=== PATIENT | male | born 1980 ===

== ENCOUNTER 2016-09-15 11:30 | Inpatient (IN) | payer OTHER ==
[~2016-09-15] VITALS: Ht 177.8 cm; Wt 104.3 kg
[2016-09-21] VITALS (12 sets, daily range): BP systolic 107–132; BP diastolic 64–82
[2016-09-21] MEDS ORDERED: ceFAZolin sod 2 GM in D5W 110 ML IVPB ONE (07:00)
[2016-09-21] MEDS ORDERED: NKM (11:03)
[2016-09-21] MEDS ORDERED: Thrombin 5000 units TOPIC ONE (11:45)
[2016-09-21] MEDS ORDERED: Vancomycin 1gm inj IVPB ONE (11:45)
[2016-09-21] MEDS ORDERED: Bacitracin 50000 Units Vial ONE (11:46)
[2016-09-21] MEDS ORDERED: Bupivacaine w/Epi 0.5% 30ml Vial INJ ONE (11:46)
[2016-09-21] MEDS ORDERED: Gelfoam Absorbable 1gm powder pkt TOPIC ONE (11:46)
[2016-09-21] MEDS ORDERED: Thrombin 5000 units spray kit TOPIC ONE (11:46)
--- NOTE | 2016-09-21 12:25 | Pre-Procedure Note/Attestation ---
Pre-Procedure Note/Attestation Complete Prior to Procedure Procedure Narrative: ACDF c56 Indications for Procedure Pre-Operative Diagnosis: Discopathy/stenosis C56 Attestation I attest that I discussed the nature of the procedure; its benefits; risks and complications; and alternatives (and the risks and benefits of such alternatives ), prior to the procedure, with the patient (or the patient's legal senior patient account representative). I attest that, if there was a reasonable possibility of needing a blood transfusion, the patient (or the patient's legal senior patient account representative) was given the [facility] standardized written summary, pursuant to the Dereje [place] Blood Safety Act ([place] Health and Safety Code # 1645, as amended). I attest that I re-evaluated the patient just prior to the surgery and that there has been no change in the patient's H&P, except as documented below: AMALIA ZUÑIGA Sep 21, 2016 12:25
[2016-09-21] MEDS ORDERED: LR 1000ml ONE (12:30)
[2016-09-21] MEDS ORDERED: fentaNYL 100 mcg/2 mL IV ONE (12:30)
[2016-09-21] MEDS ORDERED: Midazolam 2mg/2ml Inj ONE (12:30)
[2016-09-21] MEDS ORDERED: NS Irrig 1000ml ONE (12:30)
[2016-09-21] MEDS ORDERED: Propofol 10mg/ml 100ml btl IV ONE (12:30)
[2016-09-21] MEDS ORDERED: Zemuron 50mg/5ml Inj IV ONE (12:30)
[2016-09-21] MEDS ORDERED: Sterile Water Irrig 1000ml IRRIG ONE (12:30)
[2016-09-21] MEDS ORDERED: Esmolol 100mg/10ml Inj ONE (12:30)
[2016-09-21] MEDS ORDERED: LR 1000ml 1,000 ML IVLG SCH (13:35)
--- NOTE | 2016-09-21 13:41 | Anethesia Preoperative Eval ---
Anesthesia Pre-op PMH/ROS General Date of Evaluation: Sep 21, 2016 Time of Evaluation: 12:20 Anesthesiologist: Gian ASA Score: ASA 1 Mallampati Score Class I : Soft palate, uvula, fauces, pillars visible Class II: Soft palate, uvula, fauces visible Class III: Soft palate, base of uvula visible Class IV: Only hard plate visible Mallampati Classification: Class II Surgeon: Davis Diagnosis: Facet dependent pain Surgical Procedure: ACDF Allergies: Coded Allergies: No Known Allergies (Unverified , 09/18/16) Past Medical History Cardiovascular: Denies: CAD, HTN, [place], arrhythmia, other, valve dz Pulmonary: Denies: COPD, TELLO, asthma, other Gastrointestinal/Genitourinary: Denies: CRI, ESRD, GERD, other Neurologic/Psychiatric: Denies: CVA, TIA, dementia, depression/anxiety, other Endocrine: Denies: DM, hypothyroidism, other, steroids HEENT: Denies: WRANGE[place] (L), [place] (R), cataract (L), cataract (R), glaucoma, other Hematology/Immune: Denies: DVT, anemia, bleeding disorder, other Musculoskeletal/Integumentary: Denies: DDD, DJD, OA, RA, edema, other PMH Narrative: Denies significant PMH PSxH Narrative: AP, knee scope Anesthesia Pre-op Phys. Exam Physician Exam Last Vital Signs Date Time Temp Pulse Resp B/P Pulse Ox O2 Delivery O2 Flow Rate FiO2 09/21/16 11:18 97.9 85 20 126/73 99 Room Air Constitutional: NAD Neurologic: CN 2-12 intact Cardiovascular: RRR, no M/R/G Respiratory: CTA Gastrointestinal: S/NT/ND Airway Exam Mallampati Score: Class II MO: full ROM: full Teeth: intact Anesthesia Pre-op A/P Labs WNL Studies Pre-op Studies: EKG - NSR Risk Assessment & Plan Assessment: Healthy male for ACDF Plan: GETA, [place] Scope intubation Status Change Before Surgery: No Pre-Antibiotics Drug: Ancef Given Within 1 Hr of Incision: Yes Time Given: 12:45 WEI DEMPSEY M.D. Sep 21, 2016 13:41
[2016-09-21] MEDS ORDERED: Labetalol 5mg/ml 20ml vial IV PRN (13:45)
[2016-09-21] MEDS ORDERED: Meperidine 25mg/ml Inj IV PRN (13:45)
[2016-09-21] MEDS ORDERED: LORazepam Inj 2mg/ml 1ml IV PRN (13:45)
--- NOTE | 2016-09-21 13:46 | Immediate Post-Op Evaluation ---
Immediate Post-Op Evalulation Immediate Post-Op Evalulation Procedure: ACDF C5-6 Date of Evaluation: Sep 21, 2016 Time of Evaluation: 15:10 IV Fluids: 1350 Estimated Blood Loss: 50 Blood Pressure Systolic: 107 Blood Pressure Diastolic: 64 Pulse Rate: 97 Respiratory Rate: 13 O2 Sat by Pulse Oximetry: 98 Temperature (Fahrenheit): 97.6 Pain Score (1-10): 0 Nausea: No Vomiting: No Complications No complication Patient Status: reacts, patent, extubated, none Hydration Status: adequate Drug: Ancef Given Within 1 Hr of Incision: Yes Time Given: 12:45 WEI DEMPSEY M.D. Sep 21, 2016 13:46
--- NOTE | 2016-09-21 14:34 | Brief Operative Note ---
Immediate Post Operative Note Operative Note Pre-op Diagnosis: Discopathy/stenosis C56 Procedure: acdf c56 Post-op Diagnosis: same as pre-op Findings: consistent w/pre-op dx studies Surgeon: pastor Reinforcing Rod Layer: armando GUAN Anesthesiologist: agapito Anesthesia: general Specimen: none Complications: none Condition: stable Estimated Blood Loss: none Drains: none Implant(s) used?: Yes - alphatec cage and plate AMALIA ZUÑIGA Sep 21, 2016 14:34
[2016-09-21] MEDS ORDERED: Norco 7.5mg/325mg tab ORAL PRN ×2 (14:45)
[2016-09-21] MEDS ORDERED: traMADol 50mg tab ORAL PRN (14:45)
[2016-09-21] MEDS ORDERED: Norco 5mg/325mg tab ORAL PRN (14:45)
[2016-09-21] MEDS ORDERED: Milk of Magnesia 30ml Ud ORAL PRN (14:45)
[2016-09-21] MEDS ORDERED: Metoclopramide 10mg/2ml Inj IVP PRN ×2 (14:45→17:08)
[2016-09-21] MEDS ORDERED: HYDROmorphone 1mg/ml Carpuject SUBQ PRN (14:45)
[2016-09-21] MEDS ORDERED: Naloxone 0.4mg/ml Inj IVP PRN (14:45)
--- NOTE | 2016-09-21 15:04 | 48 Hour Post Anesthesia Eval ---
Post Anesthesia Evaluation Procedure: ACDF C5-6 Date of Evaluation: Sep 21, 2016 Time of Evaluation: 09:20 Blood Pressure Systolic: 113 0: 70 Pulse Rate: 96 Respiratory Rate: 14 O2 Sat by Pulse Oximetry: 98 Airway: patent Nausea: No Vomiting: No Pain Intensity: 5 If pain is > 6 Comment: Patient asking for pain meds appropriately Hydration Status: adequate Cardiopulmonary Status: Stable Mental Status/LOC: patient returned to baseline Follow-up Care/Observations: As per surgery Post-Anesthesia Complications: No anesthetic complication Follow-up care needed: N/A WEI DEMPSEY M.D. Sep 21, 2016 15:04
[2016-09-21] MEDS: Hydromorphone 0.5mg/0.5ml inj IVP PRN ×2 (15:29→15:54)
--- NOTE | 2016-09-21 16:59 | Diagnostic Imaging Report ---
Indication: PAIN, left upper extremity greater than right upper extremity, intraoperative Technique: Digital intraoperative images Comparison: None Findings: Intraoperative images document a surgical tool anterior to the C5-6 disc. Subsequent images document placement of anterior fusion hardware and a disc spacer at C5-6. Impression: Intraoperative imaging, as described
[2016-09-21] MEDS ORDERED: LR 1000ml 1,000 ML IV SCH (17:30)
[2016-09-21] MEDS ORDERED: D5 1/2NS 1,000 ML IV SCH (17:30)
[2016-09-21] MEDS: Docusate 100mg cap ORAL SCH (18:00)
[2016-09-21] MEDS: HYDROmorphone 1mg/ml Carpuject SUBQ PRN (20:57)
[2016-09-21] MEDS: Chloraseptic Spray 20mL Bottle ORAL PRN (20:59)
[2016-09-21] MEDS: ceFAZolin sod 1 GM in D5W 55 ML IV SCH ×2 (20:59→21:30)
--- NOTE | 2016-09-21 22:28 | Operative Note - Dictated ---
DATE OF OPERATION: 09/21/2016 SURGEON: David Cannon M.D. CHAIN MAKER HAND: Allan Ingram PA-C. ANESTHESIA: General endotracheal anesthesia. ANESTHESIOLOGIST: Dereje Springer M.D. PREOPERATIVE DIAGNOSIS: C5-C6 discopathy with both upper extremity radiculopathy left worse than right. POSTOPERATIVE DIAGNOSIS: C5-C6 discopathy with both upper extremity radiculopathy left worse than right. PROCEDURE: 1. Anterior cervical diskectomy and fusion. 2. Subtotal uncal vertebrectomy left side C5-C6. 3. Interbody fusion using peek structural cage. 4. Anterior plate (Alphatec). 5. Use of local autograft bone as well as allograft bone (structural) (bacterin bone). 6. Use of operative microscope. 7. Use of fluoroscopy. 8. Neurodiagnostic monitoring. ESTIMATED BLOOD LOSS: Minimal. COMPLICATIONS: None. FINDINGS: Marked stenosis left side C5-C6 . INDICATIONS: The patient is a very pleasant gentleman sustained an injury to his neck resulting in neck pain with radiation both upper extremities, but primarily left-sided. Conservative care had failed. Surgical intervention was recommended and he elected to proceed with surgery based on the abnormal findings of the C5-C6 level. The patient elected to proceed with surgery. RISK NOTE: The patient was explained in detail risks and benefits of surgery to include, but not be limited to, those of bleeding, infection, damage to nerves, vessels, tendons, anesthetic risk, allergic reaction, aspiration, possibly , possible risk of pseudoarthrosis, and need for additional surgery were discussed. OPERATIVE PROCEDURE IN DETAIL: The patient was taken to the operative suite after positive identification was made. General endotracheal anesthesia was induced. Post intubation, the patient was then placed supine on to a radiolucent operating table. The neck was prepped and draped in usual sterile fashion. Under fluoroscopic guidance, C3-C4 level was identified. The neck was prepped and draped in usual sterile fashion. The skin was infiltrated with Marcaine with epinephrine. The incision was made transversly at C5. The incision was sharply dissected down to the area of the platysma. The platysma was transected perpendicular to the fibers. Interval medial to sternocleidomastoid was identified and blunt dissection was carried out to the prevertebral fascia. A self-retaining retractors were put in place. The needle was placed first at C4-C5 corrected at the C5-C6 level. Once the C5-C6 level was identified, the disk was incised and a [place] posts were placed into C5 and C6. Operative microscope was brought in place. High-speed drill, curved curette, straight curette pituitaries and Kerrison punches were then used to perform a thorough diskectomy all the way down to the posterior osteophytes. The posterior longitudinal ligament was removed in a piecemeal fashion using Microsect curved curette, and Kerrison punch. The dissection was carried out all the way into the neural foramen on the right. The left side was very stenotic due to uncovertebral overgrowth. Uncal vertebrectomy on the left side was performed decompressing the nerve root. Care was taken to avoid injury to the vertebral arteries. Copious irrigation was performed. Once meticulous hemostasis was achieved and decompression was achieved, decision was made to place the appropriate size interbody device. This was a 6 mm medium peek cage. Prior to the interbody placement, endplate preparation was performed using a high-speed drill. At this point, it should be noted that the excess bone from the uncal vertebrectomy as well as osteophyte resection was morselized for reimplantation later. A small block of Bacterin bone was soaked in blood and inserted into a 6 mm medium peek cage, which was then inserted into the the disk space. Fluoroscopically location was confirmed. The appropriate size plate was then chosen and all four screw holes were serially drilled and 14 mm self-drilling self-tapping screws were applied with excellent bony fixation. Copious irrigation was performed. Fluoroscopic images confirmed good anatomic alignment and hardware placement. An additional piece of Bacterin bone and autograft bone was then placed along the lateral aspect of the cage. Meticulous hemostasis was achieved. The platysma was repaired using 3-0 Vicryl. Subcutaneous closure using 4-0 Vicryl and then Dermabond was applied. Sterile Tegaderm dressing was then applied. At the time of this dictation, the patient was awaiting extubation. David Cannon M.D. DR: Andrae JOB#: [id number] CC: ALIX
[2016-09-22] VITALS: BP 128/77
[2016-09-22] MEDS: Norco 10mg/325mg tab ORAL PRN ×2 (00:12→15:56)
--- NOTE | 2016-09-22 01:38 | Consultation ---
DATE OF CONSULTATION: 09/21/2016 REASON FOR CONSULTATION: Acute pain consult. CONSULTING PHYSICIAN: Jitendra Smith M.D. REFERRING PHYSICIAN: David Cannon M.D. Dear Dr. David Cannon, Thank you kindly for consulting me to evaluate and render an opinion as to how to proceed in the management of acute postoperative cervical spine pain after cervical spine fusion surgery with instrumentation. 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 Since that time, the patient has had significant neck pain and has been unable to play the guitar with neuropathic and upper extremity radicular symptoms. After today's cervical spine fusion surgery with instrumentation, the patient complained of significant discomfort. He consulted me for acute pain consultation. I saw the patient at bedside with his tasha Arevalo. I discussed the case with the hospital pharmacist, the nurse RN Sharmaine, and yourself, Dr. Cannon, to help improve this patient's pain complaints and help expedite his hospital discharge. PAST MEDICAL HISTORY: 1. Acute postoperative cervical spine pain, status post cervical spine fusion surgery with instrumentation by Dr. David Cannon in September 2016. 2. Slip and fall accident. 3. Obesity. 4. Active tobacco usage. MEDICATIONS AT HOME: NSAIDs and p.r.n. hydrocodone. PAST SURGICAL HISTORY: 1. Left knee surgery. 2. Appendectomy. 3. Bilateral ear surgery, in the distant past. FAMILY HISTORY: 1. Hypertension. 2. Kidney stones. 3. Coronary artery disease. 4. Malignancy. SOCIAL HISTORY: The patient is accompanied at bedside by his tasha Arevalo. He drinks alcohol rarely. He denies marijuana usage. After his accident he started smoking tobacco again, about a half pack per day. I did drapery counselor the patient to stop smoking. REVIEW OF SYSTEMS: Per attending physician. ALLERGIES: No known drug allergies. PHYSICAL EXAMINATION: GENERAL: Age 36. Height 5 feet 9 inches. Weight 245 pounds. Body mass index 36. VITAL SIGNS: Afebrile, pulse 97, respirations 18, blood pressure 131/76, and oxygen saturation 100% on nasal cannula. HEENT: [place] collar in place. Dressing appears clean and dry. Significant pain with range of motion. The patient is swallowing, phonating, and breathing within normal limits. Extraocular muscles intact. Pupils are equal, round, and reactive to light and accommodative. No Johnson palsy. No Carli syndrome. EXTREMITIES: Moving all extremities x4. Bilateral upper extremity weakness, which has improved since surgery. Dr. Cannon, surgery, is aware. NEUROLOGIC: Detailed neurologic exam is per Dr. Cannon. CHEST: Mildly barrel chested. No wheezes, rales, rhonchi, or accessory muscle use noted. HEART: Regular rate and rhythm. ABDOMEN: Positive obesity. Positive bowel sounds. Soft and nontender. No rebound. No guarding. GENITOURINARY: Deferred. DIAGNOSTIC TESTING: Laboratory studies from 09/11/2016 showed sodium 137, potassium 3.7, bicarbonate of 28, chloride 105, BUN 15, creatinine 0.8, calcium 9.5, and phosphorus 2.9. Total protein 6.9 and albumin 4.5. Total bilirubin 0.3, alkaline phosphatase 55, ALT 59, and AST 22. White count 8, hematocrit 44, and platelets 310,000. INR of 0.8 and PTT 31. A 12-lead EKG shows normal sinus rhythm, ventricular rate 86, no evidence for acute cardiac ischemia. IMPRESSION: 1. Acute postoperative cervical spine pain, status post cervical spine fusion surgery with instrumentation by Dr. David Cannon in September 2016. 2. Slip and fall accident. 3. Obesity. 4. Active tobacco usage. TREATMENT AND RECOMMENDATIONS: To help with this patient's pain control, I devised the following analgesic plan. Topical agents will be helpful for this patient. In this regard, he had been obtaining popsicles from the hospital dietary department and I have asked for continued supply. I have asked the pharmacy to provide a bottle of Chloraseptic [place] for possible sore throat complaints, and the patient will advance his diet as tolerated. Ice packs are available. After the patient's previous surgeries, he has tolerated hydrocodone without any adverse side effects. I spoke with the pharmacist who stated that the hospital does not carry elixir hydrocodone in stock. Therefore, we will start with [place] 10/325 mg 1 tablet orally every three hours p.r.n. for mild pain. The tablet can be crushed by the nursing team as necessary. I will add a breakthrough dose of Dilaudid 1 mg subcutaneously every three hours p.r.n. for severe pain. The patient does not appear to be anxious and does not drink alcohol considerably. I therefore would hold off any class of benzodiazepines and muscle relaxants at this time, and concentrate on the mu-opioid narcotics for primary analgesia. I have placed the patient on Protonix 40 mg nightly for GI ulcer prophylaxis along with a p.r.n. dose of Mylanta 30 mL q.6 h. p.r.n. for any GERD symptom exacerbation. I have added Zofran 4 mg intravenously every four hours p.r.n. for nausea. I have ordered Benadryl 25 mg orally every 6 hours for itching symptoms and also ordered a dose of clonidine 0.1 mg q.8 h. p.r.n. if systolic blood pressure greater than 160 mmHg. I will increase the patient's intravenous fluids to 100 mL an hour in this moderately obese gentleman to increase intravascular rehydration and reduce the risk for orthostatic hypotension when he begins to ambulate. I did drapery counselor the patient to stop smoking. With his smoking history, I have ordered incentive spirometry and encouraged good pulmonary toilet for postoperative atelectasis. I will defer DVT prophylaxis to the surgeon, Dr. Cannon. A comprehensive review of the medical record was performed. Records reviewed include multiple reports from today's date of surgery at [facility] 09/21/2016 included multiple reports from the surgery suite, from the pharmacy, from nursing team, from the surgeon, and the recovery room. I also reviewed multiple records from preoperative Dr. Laz Chan along with diagnostic testing, a 12-lead EKG, laboratory studies, and other examinations. Jitendra Smith M.D. DR: ADELINA JOB#: [id number] CC:
[2016-09-22 04:00] VITALS: BP 124/78
[2016-09-22] MEDS: HYDROmorphone 1mg/ml Carpuject SUBQ PRN ×3 (04:37→11:35)
[2016-09-22] MEDS: ceFAZolin sod 1 GM in D5W 55 ML IV SCH (05:31)
[2016-09-22] MEDS: Chloraseptic Spray 20mL Bottle ORAL PRN (06:26)
[2016-09-22 07:35] LABS: BASOPHILS % (AUTO) 1.3 % (0.0-2.0); EOSINOPHILS % (AUTO) 1.8 % (0.0-3.0); LYMPHOCYTES % (AUTO) 20.8 % (20.0-45.0); MEAN CORPUSCULAR HEMOGLOBIN 25.8 PG (27.0-31.0); MEAN CORPUSCULAR HGB CONC 32.4 G/DL (32.0-36.0); MEAN CORPUSCULAR VOLUME 80 FL (80-99); MEAN PLATELET VOLUME 5.3 FL (6.5-10.1); MONOCYTES % (AUTO) 7.4 % (1.0-10.0); NEUTROPHILS % (AUTO) 68.7 % (45.0-75.0); PLATELET COUNT 282 K/UL (150-450); RED BLOOD COUNT 5.18 M/UL (4.70-6.10); RED CELL DISTRIBUTION WIDTH 13.2 % (11.6-14.8); WHITE BLOOD COUNT 13.3 K/UL (4.8-10.8)
[2016-09-22 08:07] VITALS: BP 108/80
[2016-09-22] MEDS: Docusate 100mg cap ORAL SCH (08:28)
[2016-09-22 12:32] VITALS: BP 133/72
[2016-09-22] MEDS ORDERED: NORCO 10-325 T1 EACH ORAL ×2 (13:20→13:21)
[2016-09-22 16:08] VITALS: BP 137/82
[2016-09-22] MEDS ORDERED: Tubing IV Secondary IV ONE (16:14)
[2016-09-22] MEDS ORDERED: D5 1/2NS 1000ml IV ONE (16:14)
[2016-09-22] MEDS ORDERED: D5 1/2NS 1,000 ML IV SCH (20:00)
--- NOTE | 2016-09-22 22:28 | Progress Note ---
DATE: 09/22/2016 ACUTE PAIN MANAGEMENT PHYSICIAN PROGRESS NOTE MEDICATIONS: Medication administration record reviewed. Medications include Tylenol, [place], Mylanta, Cepacol, Catapres, Benadryl, Colace, Dilaudid, milk of magnesia, Reglan, Narcan, Protonix, Compazine, Chloraseptic spray and Restoril. LABORATORY STUDIES: From this morning, September 22, 2016, shows white count 13, hematocrit 41, and platelets 282,000. OBJECTIVE: VITAL SIGNS: Afebrile. Pulse 75, respirations 18, blood pressure 137/82, and oxygen saturation 97% on room air. I discussed the case with the nurse RN, Katiuska and the surgeon Dr. David Cannon. Mr. James Lam did very well overnight. Pain was well controlled using a topical agent Cepacol lozenges with Chloraseptic spray, along with the oral [place] tablets with intermittent Dilaudid injections. There were no adverse side effects from the medication. The patient's vital signs were stable within normal limits. The patient notes swallowing, breathing and phonating within normal limits. The patient was ambulating well today. The patient was voiding urine without any difficulties. The patient's fiancee Ludwig at the bedside. Provided good social support, as well as activities of daily living. Additionally, the patient was able to fill the prescription for [place], which I left last night. The patient did have some insomnia last night, which responded quite well to Restoril 15 mg. The patient will follow up with Dr. Cannon in the outpatient surgical clinic in 1 to 2 weeks. I agree with Dr. Cannon for discharge trial home today. Jitendra Smith M.D. DR: PATRICIA JOB#: [id number] CC:
--- NOTE | 2016-09-24 13:19 | Discharge Summary ---
Discharge Summary Hospital Course Date of Admission Sep 21, 2016 at 10:23 Date of Discharge Sep 22, 2016 at 16:15 Admitting Diagnosis HPI James Lam is a 36 year old male who was admitted on Sep 21, 2016 at 10:23 for Presumed Facet Mediated Pain C5-6 Hospital Course [id number] Discharge Discharge Disposition Patient was discharged to Home (01) Discharge Diagnoses: Morena Garcia NP Sep 24, 2016 13:19
== END 2016-09-22 16:15 | disposition home or self-care (01) | DRG 473 ==
LOC: SDSOVERFLO 09-21 10:23 → 3E 09-21 16:15
PROC: 0RG10A0 Fusion of Cervical Vertebral Joint with Interbody Fusion Device, Anterior Approach, Anterior Column, Open Approach (ICD-10-PCS; principal; 2016-09-21 12:00)
PROC: 0RB30ZZ Excision of Cervical Vertebral Disc, Open Approach (ICD-10-PCS; principal; 2016-09-21 12:00)
DX: M50.122 Cervical disc disorder at C5-C6 level with radiculopathy (principal); E66.9 Obesity, unspecified; F17.200 Nicotine dependence, unspecified, uncomplicated; W01.0XXS Fall on same level from slipping, tripping and stumbling without subsequent striking against object, sequela; Z68.36 Body mass index [BMI] 36.0-36.9, adult
CPT/HCPCS: 36415; 72040; 76001; 85025; 86850; 86900; 86901; 87081; 94003; 94150; J2180; J2250; J2405